=== PATIENT | male | born 1995 | race Caucasian/White ===

== ENCOUNTER 2017-03-08 11:15 | Emergency (ER) | payer BC ==
[2017-03-08] MEDS ORDERED: Ketorolac 30 MG/ML SDV IM ONE (11:42)
[2017-03-08 11:48] VITALS: BP 109/64
--- NOTE | 2017-03-08 12:19 | EDM.PDOC ---
ED HPI GENERAL MEDICAL PROBLEM - General Chief Complaint: Upper Extremity Injury/Pain Stated Complaint: HURT HAND Time Seen by Provider: 03/08/17 11:28 Source of Information: Reports: Patient History Limitations: Reports: No Limitations - History of Present Illness INITIAL COMMENTS - FREE TEXT/NARRATIVE: Patient here with complaints of right handed pain. He reports to punching his jet ski after becoming angry. This was on Wednesday, it is more painful and has some swelling which is why he is here. He has no other complaints. Onset Date: 03/06/17 Duration: Getting Worse Quality: Reports: Ache Severity: Mild Associated Symptoms: Reports: No Other Symptoms - Related Data Allergies Allergy/AdvReac Type Severity Reaction Status Date / Time No Known Allergies Allergy Verified 03/08/17 11:25 Home Meds: Home Meds . [No Known Home Meds] 03/08/17 [History] Review of Systems - Review of Systems Review Of Systems: See Below Musculoskeletal: Reports: Hand Pain Skin: Reports: Bruising ED EXAM, GENERAL - Physical Exam Exam: See Below Exam Limited By: No Limitations General Appearance: Alert, WD/WN, Mild Distress Extremities: Normal Inspection, Normal Range of Motion, Normal Capillary Refill , Joint Swelling, Other (on inspection of the right hand, patient has proximal right hand swelling, localized to the lateral/dorsal side) Neurological: Alert, Oriented, CN II-XII Intact, Normal Cognition, Normal Gait Psychiatric: Normal Affect, Normal Mood Skin Exam: Ecchymosis Course - Orders/Labs/Meds Orders: Active Orders 24 hr Category Date Time Status Hand Comp Min 3V Rt [CR] Stat Exams 03/08/17 11:29 Ordered Departure - Departure Time of Disposition: 12:22 Disposition: Home, Self-Care 01 Condition: Good Clinical Impression: Fracture of metacarpal bone - Discharge Information Instructions: Cast or Splint Care, [id number], Metacarpal Fracture, Easy-to- Read Forms: ED Department Discharge Additional Instructions: Follow up with a primary doctor in 1 week for follow up x-rays on your right hand You have a minimally displaced fracture at the base of the fifth metacarpal You should elevate and ice the hand, leave the splint on, cover it when showering, and keep it as clean and dry as possible Please call with any questions or concerns - Problem List & Annotations (1) Fracture of metacarpal bone SNOMED Code(s): 002084426 Code(s): S62.309A - UNSP FRACTURE OF UNSP METACARPAL BONE, INIT FOR CLOS FX Status: Acute Priority: Low Current Visit: Yes Qualifiers: Encounter type: initial encounter Metacarpal bone: fifth Fracture type: closed Metacarpal location: base Fracture alignment: displaced Laterality : right Qualified Code(s): S62.316A - Displaced fracture of base of fifth metacarpal bone, right hand, initial encounter for closed fracture - Problem List Review Problem List Initiated/Reviewed/Updated: Yes - My Orders Last 24 Hours: My Active Orders 03/08/17 11:29 Hand Comp Min 3V Rt [CR] Stat - Assessment/Plan Last 24 Hours: My Active Orders 03/08/17 11:29 Hand Comp Min 3V Rt [CR] Stat Assessment:: minimally displaced fracture of the base of right 5th metacarpal Plan: Follow up with a primary doctor in 1 week for follow up x-rays on your right hand You have a minimally displaced fracture at the base of the fifth metacarpal You should elevate and ice the hand, leave the splint on, cover it when showering, and keep it as clean and dry as possible Please call with any questions or concerns
== END 2017-03-08 12:20 | disposition home or self-care (01) ==
LOC: VM.ED 11:15
DX: S62.316A Displaced fracture of base of fifth metacarpal bone, right hand, initial encounter for closed fracture (principal); W22.8XXA Striking against or struck by other objects, initial encounter
CPT/HCPCS: 29125; 73130-RT; 99283